=== PATIENT | female | born 1965 | race Two or more races ===

== ENCOUNTER 2025-01-13 21:47 | Emergency (ER) | payer OTHER ==
[~2025-01-13] VITALS: Ht 162.6 cm; Wt 79.9 kg
--- NOTE | 2025-01-13 23:03 | DVH ---
CLINICAL INDICATION: LEFT HIP PAIN TECHNIQUE: XY L HIP COMPLETE XRAY Comparison: None FINDINGS: No osseous or joint abnormality identified with no evidence of fracture or dislocation. Joint spaces are normal. IMPRESSION: No abnormality demonstrated.
[2025-01-14 00:22] VITALS: BP 128/79; PULSE 66; RESP 16; TEMP 97.5; O2SAT 96
[2025-01-14] MEDS ORDERED: CYCL-837 PO (00:25)
[2025-01-14] MEDS ORDERED: IBUP-1456 PO (00:25)
--- NOTE | 2025-01-14 00:26 | ED.PDOC ---
Musculoskeletal HPI Comments 59-year-old female presents to ER with complaints of left hip pain x1 week. Patient reports that he started experiencing left hip pain with radiation towards her left buttock and down posterior left leg x one week. Denies any trauma/injury. She rates her current pain an 8/10. Reports she has been taking Tylenol for her pain with slight relief. Patient presents to ER ambulatory on arrival, with steady gait, in no distress. Denies fever, body aches, chills, numbness/tingling or any further symptoms/complaints Chief Complaint: Lower Extremity Time Seen by MD: 22:34 Primary Care Provider: UNKNOWN Reviewed Notes: Nurses Notes, Medications, Allergies Allergies: Coded Allergies: No Known Drug Allergy (Verified Allergy, Unknown, 01/13/25) Home Meds Active Scripts Ibuprofen (Ibuprofen) 800 Mg Tab, 1 TAB PO TID PRN, #30 TAB 0 Refills Prov:EZEKIEL CHAMBERS 01/14/25 Cyclobenzaprine Hcl (Cyclobenzaprine Hcl) 5 Mg Tab, 1 TAB PO QHSP, #14 TAB 0 Refills Prov:EZEKIEL CHAMBERS 01/14/25 Information Source: Patient Mode of Arrival: Ambulatory Past Medical History PAST MEDICAL HISTORY: Denies Surgical History: Appendectomy, Family History Family History: Unknown Social History Smoker: Non-Smoker Alcohol: Denies ETOH Use Drugs: Denies Drug Use Lives In: Home Constitutional: denies: chills, diaphoresis, fatigue, fever, malaise, sweats, weakness, others EENTM: denies: blurred vision, double vision, ear bleeding, ear discharge, ear drainage, ear pain, ear ringing, eye pain, eye redness, hearing loss, mouth pain, mouth swelling, nasal discharge, nose bleeding, nose congestion, nose pain, photophobia, tearing, throat pain, throat swelling, voice changes, others Respiratory: denies: cough, hemoptysis, orthopnea, SOB at rest, shortness of breath, SOB with excertion, stridor, wheezing, others Cardiovascular: denies: chest pain, dizzy spells, diaphoresis, Dyspnea on exertion, edema, irregular heart beat, left arm pain, lightheadedness, palpitations, PND, syncope, others Gastrointestinal: denies: abdomen distended, abdominal pain, blood streaked bowels, constipated, diarrhea, dysphagia, difficulty swallowing, hematemesis, melena, nausea, poor appetite, poor fluid intake, rectal bleeding, rectal pain, vomiting, others Genitourinary: denies: abnormal vagina bleeding, burning, dyspareunia, dysuria, flank pain, frequency, hematuria, incontinence, pain, , vagina discharge, urgency, others Neurological: denies: dizziness, fainting, headache, left sided numbness, left sided weakness, numbness, paresthesia, pre-existing deficit, right sided numbness, right sided weakness, seizure, speech problems, tingling, tremors, weakness, others Musculoskeletal: reports: others (As stated in HPI) Integumetry: denies: bruises, change in color, change in hair/nails, dryness, laceration, lesions, lumps, rash, wounds, others Allergic/Immunocompromised: denies: Difficulty Healing, Frequent Infections, Hives, Itching, others Hematologic/Lymphatic: denies: anemia, blood clots, easy bleeding, easy bruising, swollen glands, others Endocrine: denies: excessive hunger, excessive sweating, excessive thirst, excessive urination, flushing, intolerance to cold, intolerance to heat, unexplained weight gain, unexplained weight loss, others Psychiatric: denies: anxiety, bipolar disorder, depression, hopeless, panic disorder, schizophrenia, sleepless, suicidal, others Physical Exam General Appearance: No Apparent Distress, Obese HEENT: PERRL/EOMI Neck: Full Range of Motion, Non-Tender, Normal Respiratory: Chest Non-Tender, Lungs Clear, No Accessory Muscle Use, No Respiratory Distress, Normal Breath Sounds Cardiovascular: No Murmur, No Gallop, Regular Rate/Rhythm Breast Exam: Deferred Gastrointestinal: Non Tender, No Pulsatile Mass, Soft Genitalia: Deferred Pelvic: Deferred Rectal: Deferred Extremities: Normal capillary refill, Normal range of motion Musculoskeletal : Extremity Location: Hip (Slight TTP to left hip and centralized to left buttock noted. No TTP to lumbar/thoracic spine noted. Steady gait appreciated.) Neurologic: Alert, No Motor Deficits, Normal Affect, Normal Mood, No Sensory Deficits Cerebellar Function: Normal Reflexes: Normal Skin: Dry, Normal Color, Warm Peripheral Pulses: 2+ femoral (R), 2+ femoral (L), 2+ dorsalis pedis (R), 2+ dorsalis pedis (L), 2+ Radial (R), 2+ Radial (L), 2+ Brachial (R), 2+ Brachial (L) Lymphatic: No Adenopathy Was a procedure done? Was a procedure done?: No Sedation Sedation?: No Differential Diagnosis EXT Differential Diagnosis: Fracture, Dislocation, Neurovascular injury X-Ray, Labs, Meds, VS Vital Signs Date Time Temp Pulse Resp B/P (MAP) Pulse Ox O2 Delivery O2 Flow Rate FiO2 01/14/25 00:22 97.5 66 16 128/79 (95) 96 97.5 01/14/25 00:22 96 Room Air* 0 21 01/13/25 22:22 97.5 66 16 128/79 (95) 96 97.5 PATIENT: DEVON REED: [id number]: [id number] : 1965 LOC: ER ROOM / BED: / AGE / SEX: 59 / F ADM STATUS: REG ER SERVICE 33 ORDERING PHYSICIAN: EZEKIEL CHAMBERS PROCEDURE(s): LHIP - L HIP COMPLETE XRAY REASON: LEFT HIP PAIN ORDER NUMBER(s): [id number], ACCESSION NUMBER(s): [id number] CLINICAL INDICATION: LEFT HIP PAIN TECHNIQUE: XY L HIP COMPLETE XRAY Comparison: None FINDINGS: No osseous or joint abnormality identified with no evidence of fracture or dislocation. Joint spaces are normal. IMPRESSION: No abnormality demonstrated. ATED BY: LES GOYAL MD DICTATED DATE/TIME: 01/13/252300 SIGNED BY: LES GOYAL MD SIGNED DATE/TIME: 01/13/252300 CC: Toradol 60 mg IM ordered Left hip x-ray reviewed Advised on rest/no strenuous activity Advised to follow up with PCP in 1-2 days Patient verbalized understanding and agreeable with current plan of care Advised to return to ER immediately if symptoms worsen Images Reviewed?: Images reviewed and evaluated by me Time of 1ST Reevaluation: 00:08 Reevaluation 1ST: N/A Patient Education/Counseling: Diagnosis, Treatment, Prognosis, Need For Follow Up Family Education/Counseling: No Family Present Departure 1 Departure Time of Disposition: 00:24 Impression: Primary Impression: Sciatica, left side Disposition: HOME / SELF CARE / HOMELESS Condition: Stable e-Prescriptions Ibuprofen (Ibuprofen) 800 Mg Tab 1 TAB PO TID PRN, #30 TAB 0 Refills Prov: EZEKIEL CHAMBERS 01/14/25 Cyclobenzaprine Hcl (Cyclobenzaprine Hcl) 5 Mg Tab 1 TAB PO QHSP, #14 TAB 0 Refills Prov: EZEKIEL CHAMBERS 01/14/25 Discharged With: Self Critical Care Note Critical Care Time?: No Stability Stability form required: No Heart Score Heart Score: Heart Score Response (Comments) Value History N/A 0 EKG N/A 0 Age N/A 0 Risk Factors N/A 0 Troponin N/A 0 Total 0 EZEKIEL CHAMBERS January 14, 2025 00:26
[2025-01-14] MEDS: KETOROLAC TROMETH 60MG/2ML VIAL IM ONE (00:32)
== END 2025-01-14 00:31 | disposition home or self-care (01) ==
LOC: ER 21:47
DX: M54.32 Sciatica, left side (principal); M25.552 Pain in left hip; Z90.49 Acquired absence of other specified parts of digestive tract; Z98.890 Other specified postprocedural states; Z79.899 Other long term (current) drug therapy
CPT/HCPCS: 73502